=== PATIENT | male | born 2000 | race Caucasian/White ===

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

== ENCOUNTER → 2023-01-12 | Outpatient (CLI) | payer BC, MEDICAID ==
[~2023-01-12] MED LIST changes: -CATHETER FLUSH 10 ML SYR IV PRN; -HOLD METFORMIN - RECEIVED CONTRAST 20 ML VIAL IV SCH; -IOHEXOL 350 MG/ML 100 ML (OMNIPAQUE 350) VIAL IV ONE; -LISI-556; +LISI5TAB20; -NS 100 ML (IVPB) BAG IV ONE; -SULF1TAB35 PO; +SULF1TAB38 PO
== END ==
LOC: CARD 12:31
PROVIDERS: ATTEND Physician Assistant
DX: I34.0 Nonrheumatic mitral (valve) insufficiency (principal); I10 Essential (primary) hypertension
CPT/HCPCS: 93306